=== PATIENT | female | born 1975 | race Caucasian/White ===

== ENCOUNTER 2018-05-11 12:10 | Inpatient (IN) ==
--- NOTE | 2018-05-11 09:04 | Discharge Summary ---
Orders not resulted at time of discharge: Pending orders 05/11/18 09:03 Hemoglobin and Hematocrit [HEME] Routine Date of Encounter: 05/11/18 - Discharge Diagnosis (1) Arthritis of left hip Priority: Primary Status: Chronic (2) Status post total hip replacement, left Priority: Primary Status: Acute (3) Asthma Priority: Secondary Status: Chronic Qualifiers: Asthma severity: unspecified severity Asthma persistence: unspecified Asthma complication type: unspecified Qualified Code(s): J45.909 - Unspecified asthma, uncomplicated - Hospital Course Hospital course: Ms. Cates is a 43 year old female - Time Spent with Patient Total time spent providing and/or coordinating discharge services: - Discharge Medications Allergies/Adverse Reactions: Allergy/AdvReac Type Severity Reaction Status Date / Time Penicillins Allergy Nausea Verified 05/11/18 13:26 Primary care physician: PCP NONE - Discharge Instructions Follow Up With: NONE,PCP [Primary Care Provider] -
--- NOTE | 2018-05-11 12:26 | History & Physical Report ---
Date of Encounter: 05/11/18 Time of Encounter: 12:26 24 Hour HP Update - Instructions Instructions: If the History and Physical is less than 30 days old and was completed prior to A.M. admission and or procedure and has NOT been updated on calendar day of procedure please complete this update prior to performing procedure. - Update Patient reports changes in Medical Condition: No Changes in examination, assessment, or condition: No Changes in Medication: No Preop tests/diagnostics Reviewed: Yes Surgery Remains Indicated: Yes Consent for Planned Operative Procedure(s) Verified: Yes - Pre-Operative Checklist Preoperative Checklist Indicated: No Prophylactic Antibiotic Ordered: Yes Is VTE Prophylaxis Indicated?: Yes
[2018-05-11] MEDS ORDERED: Albuterol 2.5 MG/3 ML NEBULIZER IH ONE (12:46)
[2018-05-11] MEDS ORDERED: Clindamycin 900 MG/50 ML 900 MG/50 ML IV.SOLN IVPB ONE (12:46)
[2018-05-11] MEDS ORDERED: *HR* PHENYLEPHRINE 1,000 MCG/10 ML SYRINGE IVP ONE ×2 (12:48→14:07)
[2018-05-11] MEDS ORDERED: Acetaminophen IV 1,000 MG/100 ML INFUS..BTL IVPB ONE (12:57)
[2018-05-11] MEDS ORDERED: Scopolamine Patch 1.5 MG PATCH.TD72 TD ONE (12:57)
[2018-05-11] MEDS ORDERED: Gabapentin 300 MG CAPSULE PO ONE (12:57)
[2018-05-11] MEDS ORDERED: Celecoxib 100 MG CAPSULE PO ONE (12:57)
[2018-05-11] MEDS ORDERED: Famotidine 20 MG/2 ML VIAL IVP ONE (12:57)
--- NOTE | 2018-05-11 12:58 | Anesthesia Evaluation PreOp ---
Date of Encounter: 05/11/18 Time of Encounter: 12:55 - Past History Planned Operation: Left total hip Cardiac History: Denies any Significant Hx Pulmonary History: Asthma (well controlled) ACADEMIC MANAGER History: Denies Any Significant HX Other Medical History: Other (PCOS, congenitl hip dysplasia) Anesthesia History: No Prior Anesthetic Complications, Past Anesthesia (gastric sleeve) : No Alcohol Use: none Drug use: none Medications and Allergies Naproxen [Naprosyn] 500 mg PO BID #20 tablet 03/21/16 [Rx] OxyCODONE/APAP 5/325 [Percocet 5/325 MG] 1 each PO Q4HR PRN #20 tablet 03/21/16 [Rx] Promethazine [Phenergan] 25 mg PO Q6HR PRN #14 tablet 03/21/16 [Rx] levoFLOXacin [Levaquin] 500 mg PO DAILY 7 Days #7 tablet 12/14/17 [Rx] Aspirin Enteric Coated [Aspirin EC] 325 mg PO BID #20 tablet. 05/11/18 [Rx] Ibuprofen [Motrin] 600 mg PO Q8HR #20 tab 05/11/18 [Rx] OxyCODONE Immed Rel [Roxicodone 5 MG] 5 mg PO Q6HR PRN 5 Days #20 tablet 05/11/18 [Rx] Allergy/AdvReac Type Severity Reaction Status Date / Time latex Allergy Rash Verified 03/21/16 10:59 Penicillins Allergy Swelling Verified 03/21/16 10:09 of Lip/Tongue/Throat - Meds/Allergy Pre-op Review Medications Reviewed: Yes Allergies Reviewed: Yes Beta Blockers on Current Med List: No Anesthesia Results - Labs Laboratory Tests 04/12/18 04/12/18 04/12/18 09:20 09:20 09:20 WBC 4.1 L Hgb 13.8 Hct 42.2 Plt Count 121 L PT 12.1 INR 1.1 APTT 28.9 Sodium 138 Potassium 3.9 Chloride 105 Carbon Dioxide 26 BUN 13 Creatinine 0.78 Est GFR (Non-Af Amer) > 60 Anesthesia Exam Vital Signs/O2 Sat/Glucose, Most Recent Temp Pulse Resp BP Pulse Ox 98.6 F 66 18 130/83 99 05/11/18 12:38 05/11/18 12:38 05/11/18 12:38 05/11/18 12:38 05/11/18 12:38 Weight: 72 kg NPO (# of Hours): > 8 hr - HEENT Pupil (Motor): Pupils equal Mallampati: II Teeth: Normal Oral Opening: Greater than 3 - ACADEMIC MANAGER LOC: Oriented ACADEMIC MANAGER Motor: Normal RUE, Normal LUE, Normal RLE, Normal LLE, Normal Face ACADEMIC MANAGER Sensory: Normal: RUE, LUE, RLE, LLE, Face - Cardiac Rhythm: Regular Murmur: None - Pulmonary Breath Sounds: bilateral Clear Respiratory Effort: Symmetrical Anesthesia Assess/Plan ASA Score: 2 Level of consciousness: Cooperative, Oriented Anesthetic Plan: MAC, Spinal Monitoring Plan: Standard Monitors Recovery Plan: PACU
[2018-05-11] MEDS ORDERED: Ringers Solution, Lactated 1,000 ML IVC SCH ×2 (13:00→15:50)
--- NOTE | 2018-05-11 13:03 | Physician Discharge Referral ---
Home Health/Hosp Referral Info Transfer to: Home Health Provider in Charge Post Discharge: PCP - Diagnosis (1) Status post total hip replacement, left Priority: Primary Status: Acute (2) Arthritis of left hip Priority: Primary Status: Chronic - Respiratory Orders None Smoking Cessation: Smoking cessation has been advised. For more information, call the [place] Tobacco Quit Line at 7-088-TZSC-NOW. - Diet/Nutrition Diet/Nutrition Orders: Regular - Activity Activity Orders: Up ad marlene, Ambulate, Walker - Services Needed Following services are medically necessary services: Nursing, Home Health Aide, Physical Therapy, Occupational Therapy Home Care Orders: Opsite dressing, leave intact until first post-operative visit. If dressing becomes >50% saturated, contact office, remove dressing and place appropriate dressing in its place. Do not allow for dressing to get wet. Zipline/[place] in place, plan to remove at post-operative day #14-16. Total Joint Precautions x 6 weeks Apply cold therapy wrap 3-6x/day for 20 minutes at a time. Encourage ambulation throughout the day Use Incentive spirometer 10x/hour. Elevate affected extremity above heart as tolerated. Brace: Wear hip abductor brace at night x 6 weeks. - Transfer Medications Prescriptions: OxyCODONE Immed Rel [Roxicodone 5 MG] 5 mg PO Q6HR PRN 5 Days #20 tablet PRN Reason: Pain Ibuprofen [Motrin] 600 mg PO Q8HR #20 tab Aspirin Enteric Coated [Aspirin EC] 325 mg PO BID #20 tablet. Home Medications: Naproxen [Naprosyn] 500 mg PO BID #20 tablet 03/21/16 [Rx] OxyCODONE/APAP 5/325 [Percocet 5/325 MG] 1 each PO Q4HR PRN #20 tablet 03/21/16 [Rx] Promethazine [Phenergan] 25 mg PO Q6HR PRN #14 tablet 03/21/16 [Rx] levoFLOXacin [Levaquin] 500 mg PO DAILY 7 Days #7 tablet 12/14/17 [Rx] Aspirin Enteric Coated [Aspirin EC] 325 mg PO BID #20 tablet. 05/11/18 [Rx] Ibuprofen [Motrin] 600 mg PO Q8HR #20 tab 05/11/18 [Rx] OxyCODONE Immed Rel [Roxicodone 5 MG] 5 mg PO Q6HR PRN 5 Days #20 tablet 05/11/18 [Rx] Allergies/Adverse Reactions: Allergy/AdvReac Type Severity Reaction Status Date / Time latex Allergy Rash Verified 03/21/16 10:59 Penicillins Allergy Swelling Verified 03/21/16 10:09 of Lip/Tongue/Throat Certification: Further, I certify that my clinical findings support that this patient is homebound (i.e. absences from home require considerable and taxing effort and are for medical reasons or hoahaoism services or infrequently or short duration when for other reasons) because: Homebound Reason: Post-surgery restriction and or conditions limit ability to leave home Attestation: My signature below is to certify that this patient is under my care and that I, or nurse practitioner, or a physician's pediatric physical therapy assistant working with me, has a [id number] encounter with this patient.
[2018-05-11] MEDS ORDERED: *HR* Morphine Sulfate/PF 10 MG/10 ML AMPUL ONE (13:10)
[2018-05-11] MEDS ORDERED: Dexamethasone 4 MG/ML VIAL ONE (13:10)
[2018-05-11] MEDS ORDERED: Ondansetron 4 MG/2 ML VIAL ONE (13:10)
[2018-05-11] MEDS ORDERED: Lidocaine -MPF 1% 5 ML AMPUL ONE (13:10)
[2018-05-11] MEDS ORDERED: Lidocaine -MPF 2% 2 ML VIAL ONE (13:10)
[2018-05-11] MEDS ORDERED: *HR* Succinylcholine 200 MG/10 ML VIAL IVP ONE (13:11)
[2018-05-11] MEDS ORDERED: Ethanol\\Acetic Acid\\Na Ace\\Ben 1,000 ML IRRIG.SOLN IR ONE (13:28)
[2018-05-11] MEDS ORDERED: *HR* Midazolam HCl 2 MG/2 ML VIAL ONE (13:29)
[2018-05-11] MEDS ORDERED: *HR* FentaNYL (PF) 100 MCG/2 ML VIAL ONE (13:29)
[2018-05-11] MEDS ORDERED: Propofol 500 MG/50 ML INFUS..BTL ONE (13:33)
[2018-05-11] MEDS ORDERED: EPHEDrine 50 MG/ML VIAL ONE (14:26)
[2018-05-11] MEDS ORDERED: *HR* Propofol 200 MG/20 ML VIAL IVP ONE (14:36)
--- NOTE | 2018-05-11 15:01 | Orthopedic Operative Note ---
Date of procedure: 05/11/18 Pre-op diagnosis: Osteoarthritis left hip Post-op diagnosis: same Procedure: Procedure: Left Total Hip Replacment robotic-assisted Estimated blood loss: 200 cc Hardware: Metal and polyethylene replacement. [place] DM Cup: 52 cup Femoral 8 size stem Head: +8 head with Rose Procedural Notes: Grade 4 arthritic changes femoral head acetabular socket, procedure performed with robotic assistance. 16 mm shorter operative versus nonoperative as measured by preoperative CT scan Operative procedure: The patient was brought to the operating room and placed on the operating room table. After general anesthesia was administered the patient was placed in the lateral decubitus position with the operative leg up. All pressure points were padded appropriately and the head was stabilized in the neutral position. The operative extremity was prepped and draped in the sterile surgical fashion patient received IV antibiotic prior to skin incision. 3 Steinmann pins were placed in the iliac crest 3 cm proximal to the anterior superior iliac spine this was for the robotic-assisted sensor. This was done through a small 2 cm incision. A standard posterior approach is made to the operative hip, the incision was made through the skin and subcutaneous tissue hemostasis was obtained with Bovie cautery. Using careful sharp dissection the fascia was identified and incised exposing the external rotators. The greater trochanter was marked, and length was measured at this time utilizing robotic assistance. The external rotators were released off the greater trochanter and tagged with #2 FiberWire suture. The capsule was T'd open and the hip was brought into internal rotation. Patient noted to have grade 4 arthritic changes femoral head. The femoral neck cut was made at the appropriate level roughly 15 mm proximal to the lesser trochanter aced on preoperative templating. An anterior capsulotomy was performed for the anterior retractor. Soft tissues removed from the acetabulum. Patient noted to have grade 4 arthritic changes acetabulum. The acetabulum reference point was confirmed. The acetabulum was then mapped with robotic assistance. Based on the preoperative plan the acetabulum was reamed in one step with a 51 reamer. The 52 acetabulum was impacted with robotic assistance and 40 degrees of abduction and 20 degrees of anteversion. The hip was brought back in to internal rotation and prepared with the box covering machine operator followed by the canal finder followed by the reaming process to a size 8/9 broaching process in 20 degrees anteversion. It was broached up to the appropriate size 8 Trial reduction revealed leg lengths close to normal. The femoral implant was impacted in place in 20 degrees of anteversion. Trial reduction found the hip to be stable with 8 head and Rose. The trials were removed and the real implants were impacted in place. The hip was reduced, patient had robotic confirmed leg length of 5 mm shorter than the contralateral side. The hip had excellent stability with forward flexion to 90 degrees adduction of 30 degrees and internal rotation of 60 degrees. The hip had no shuck. The hip sat with an antibacterial solution. It was irrigated out with 2 L of pulse irrigation. The Steinmann pins were removed. The hip was closed by the PA. The deep tissue was irrigated and closed deep with #1 PDS suture superficially with 0 PDS suture and skin was closed with Dermabond and zip tie. The patient was placed in a sterile dressing and abduction pillow. The patient was extubated and transferred to the recovery room in stable condition. Anesthesia: spinal Surgeon: Fito Harman Was there an assistant golf course superintendent present: No Estimated blood loss (cc): 200 Condition: stable Disposition: PACU
[2018-05-11 15:42] LABS: Basophils % 0.3 %; Eosinophils % 0.7 %; Hematocrit 34.8 % (35.3-44.9); Hemoglobin 11.5 g/dL (11.5-15.4); Immature Granulocytes % 0.3 % (0-4); Lymphocytes # 0.8 K/mcL (0.6-4.6); Lymphocytes % 13.3 %; Mean Corpuscular Hemoglobin 29.6 pg (28.0-33.3); Mean Corpuscular Volume 89.5 fL (83.0-100.0); Mean Platelet Volume 10.7 fL (9.4-12.4); Monocytes # 0.3 K/mcL (0.0-1.3); Monocytes % 4.3 %; Neutrophils # 4.7 K/mcL (1.6-8.9); Platelet Count 123 K/mcL (140-400); Red Blood Count 3.89 M/mcL (3.82-4.97); Red Cell Distribution Width 12.4 % (11.5-14.5); Segmented Neutrophils % 81.1 %
[2018-05-11] MEDS ORDERED: MOM Conc 10 ML UD.LIQ PO PRN (15:50)
[2018-05-11] MEDS ORDERED: Naloxone 0.4 MG/ML INJ IVP PRN (15:50)
[2018-05-11] MEDS ORDERED: Temazepam 15 MG CAPSULE PO PRN (15:50)
[2018-05-11] MEDS ORDERED: *HR* OxyCODONE/APAP 5/325 TABLET PO PRN (15:50)
[2018-05-11] MEDS ORDERED: Sennosides 8.6 MG TABLET PO PRN (15:50)
[2018-05-11] MEDS ORDERED: *HR* OxyCODONE Immed Rel 5 MG TABLET PO PRN (15:50)
[2018-05-11] MEDS: Ondansetron 4 MG/2 ML VIAL IVP PRN ×2 (16:23→23:58)
--- NOTE | 2018-05-11 17:56 | Anesthesia Evaluation Post Op ---
Date of Encounter: 05/11/18 Time of Encounter: 15:30 - Vital Signs Vital Signs: Selected Entries 05/11/18 16:20 Temperature 98.4 F Pulse Rate 81 Respiratory Rate 16 Blood Pressure 126/85 O2 Sat by Pulse Oximetry 97 - Lungs Lungs: Clear Ascult./Percussion - Airway Airway: Non-obstructed - Cardiovascular Regular Rate - Mental Status Mental Status: Alert & Oriented, Answers Appropriately - Nausea Vomiting Nausea Vomiting: Not Present - Hydration Hydration: NPO - Discharge PostOp Status: Transfer Patient to floor
[2018-05-11] MEDS ORDERED: *HR* Enoxaparin 30 MG/0.3 ML SYRINGE SQ SCH (18:00)
[2018-05-11] MEDS: Ascorbic Acid 500 MG TABLET PO SCH (18:04)
[2018-05-11] MEDS: *HR* Enoxaparin 30 MG/0.3 ML SYRINGE SQ SCH (18:05)
[2018-05-11] MEDS: Clindamycin 900 MG/50 ML 900 MG/50 ML IV.SOLN IVPB SCH (21:36)
[2018-05-12] MEDS ORDERED: Ketorolac 15 MG/ML VIAL IVP PRN (05:51)
[2018-05-12] MEDS ORDERED: Acetaminophen IV 1,000 MG/100 ML INFUS..BTL IVPB PRN (05:59)
[2018-05-12] MEDS: Clindamycin 900 MG/50 ML 900 MG/50 ML IV.SOLN IVPB SCH (06:11)
[2018-05-12] MEDS: *HR* Enoxaparin 30 MG/0.3 ML SYRINGE SQ SCH ×2 (06:11→17:25)
[2018-05-12] MEDS: Ketorolac 30 MG/ML VIAL IVP PRN ×2 (06:12→13:32)
[2018-05-12 06:35] LABS: Hematocrit 35.2 % (35.3-44.9); Hemoglobin 11.8 g/dL (11.5-15.4)
[2018-05-12 06:36] LABS: BUN/Creatinine Ratio 14 (6-26); Blood Urea Nitrogen 11 mg/dL (6-20); Calcium 9.2 mg/dL (8.6-10.3); Carbon Dioxide 23 mEq/L (23-29); Chloride 102 mEq/L (98-107); Glucose 146 mg/dL (70-105); Osmolality,Calculated 284 (280-300); Potassium 4.4 mEq/L (3.5-5.1); Sodium 136 mEq/L (136-145); eGFR For Non-African Americans > 60 (> 60)
[2018-05-12] MEDS: Ondansetron 4 MG/2 ML VIAL IVP PRN (09:15)
[2018-05-12] MEDS: Ascorbic Acid 500 MG TABLET PO SCH ×2 (09:23→16:39)
[2018-05-12] MEDS: Multivit/Ca/Min/Fe/FA 1 TAB TABLET PO SCH (09:23)
--- NOTE | 2018-05-12 12:05 | Orthopedics Progress Note ---
Date of Encounter: 05/12/18 Time of Encounter: 12:03 Subjective Interval history: S: Patient is seen today and has no complaints. Was not out of bed yesterday due to drowsiness. Feeling better this morning and requesting Tums. O: Afebrile and vital signs are stable Operative extremity dressing is clean, dry, and intact. Neurovascularly intact distally A: Post left hip arthroplasty P: Doing well Will provide Tums Resume postoperative care Discharge planning Objective Vital signs: Vital Signs Temp Pulse Resp BP Pulse Ox 05/12/18 11:12 98.0 F 65 17 91/58 95 05/12/18 06:43 98.3 F 65 15 93/57 96 05/12/18 03:54 98.4 F 75 16 94/60 93 05/11/18 23:47 97.5 F L 69 16 103/65 100 05/11/18 19:56 96.8 F L 67 14 101/68 99 05/11/18 18:50 98.5 F 70 16 124/84 98 05/11/18 17:50 98.4 F 82 16 126/77 96 05/11/18 16:50 98.3 F 69 16 137/90 90 05/11/18 16:20 98.4 F 81 16 126/85 97 05/11/18 15:50 98.4 F 71 15 116/69 98 05/11/18 15:36 97.7 F 65 12 123/79 99 05/11/18 15:26 80 12 113/72 97 05/11/18 15:16 76 15 108/73 100 05/11/18 15:06 98.1 F 79 16 113/61 98 05/11/18 12:38 98.6 F 66 18 130/83 99 Intake and Output 05/11/18 05/12/18 05/12/18 23:59 07:59 15:59 Intake Total 250 / 250 100 / 100 Output Total 200 / 200 700 / 700 Balance 50 / 50 -700 / -700 100 / 100 Intake: IV Fluids 50 / 50 100 / 100 Ofirmev 1,000 mg/100 ml 1,000 100 / 100 mg In 100 ml @ 400 mls/hr IVPB Q6HR PRN Rx#:[id number] Cleocin Premix 900 MG/50 ML 900 50 / 50 mg In 50 ml @ 50 mls/hr IVPB Q8H [facility] Rx#:[id number] Oral 200 / 200 Output: Urine 700 / 700 Emesis 200 / 200 Other: Weight 81.3 kg Patient Weight 05/12/18 23:59 Weight 81.3 kg - Labs CBC & BMP: 05/12/18 05:35 05/12/18 05:35 Labs: Abnormal lab results Hct 35.2 % (35.3-44.9) L 05/12/18 05:35 Plt Count 123 K/mcL (140-400) L 05/11/18 15:27 Glucose 146 mg/dL (70-105) H 05/12/18 05:35 Consult Discharge Plan - Plan Referrals: NONE,PCP [Primary Care Provider] -
[2018-05-12] MEDS: traMADol 50 MG TABLET PO PRN (16:42)
[2018-05-13 03:16] LABS: Hematocrit 27.4 % (35.3-44.9)
[2018-05-13 03:22] LABS: Hemoglobin 9.2 g/dL (11.5-15.4)
[2018-05-13 03:36] LABS: BUN/Creatinine Ratio 16 (6-26); Blood Urea Nitrogen 14 mg/dL (6-20); Calcium 8.8 mg/dL (8.6-10.3); Carbon Dioxide 26 mEq/L (23-29); Chloride 105 mEq/L (98-107); Glucose 109 mg/dL (70-105); Osmolality,Calculated 285 (280-300); Potassium 4.3 mEq/L (3.5-5.1); Sodium 137 mEq/L (136-145); eGFR For Non-African Americans > 60 (> 60)
[2018-05-13] MEDS: Ondansetron 4 MG/2 ML VIAL IVP PRN (04:02)
[2018-05-13] MEDS: Ketorolac 30 MG/ML VIAL IVP PRN (04:05)
[2018-05-13] MEDS: *HR* Enoxaparin 30 MG/0.3 ML SYRINGE SQ SCH (06:19)
[2018-05-13 07:54] VITALS: BP 98/59
[2018-05-13] MEDS: Multivit/Ca/Min/Fe/FA 1 TAB TABLET PO SCH (09:12)
[2018-05-13] MEDS: Ascorbic Acid 500 MG TABLET PO SCH (09:12)
[2018-05-13] MEDS: traMADol 50 MG TABLET PO PRN (09:15)
--- NOTE | 2018-05-13 09:15 | Orthopedics Progress Note ---
Date of Encounter: 05/13/18 Time of Encounter: 09:14 Subjective Interval history: S: Patient is seen today and has no complaints. O: Afebrile and vital signs are stable Operative extremity dressing is clean, dry, and intact. Neurovascularly intact distally A: Post left hip arthroplasty P: Doing well Resume postoperative care Discharge planning Objective Vital signs: Vital Signs Temp Pulse Resp BP Pulse Ox 05/13/18 07:54 98.7 F 73 16 98/59 97 05/13/18 03:51 98.7 F 62 16 99/62 99 05/13/18 01:15 98.6 F 64 14 94/62 98 05/12/18 18:59 98.8 F 69 16 103/68 98 05/12/18 15:21 98.9 F 70 14 103/65 97 05/12/18 11:12 98.0 F 65 17 91/58 95 Intake and Output 05/12/18 05/13/18 05/13/18 23:59 07:59 15:59 Intake Total 200 / 200 0 / 0 Output Total 0 / 0 0 / 0 Balance 200 / 200 0 / 0 Intake: IV Fluids 200 / 200 Lactated Ringers 1,000 ML @ 75 200 / 200 mls/hr IVC .[id number] [facility] Rx#: [id number] Oral 0 / 0 0 / 0 Output: Urine 0 / 0 0 / 0 Other: # Voids 1 Weight 81.26 kg Patient Weight 05/13/18 23:59 Weight 81.26 kg - Labs CBC & BMP: 05/13/18 03:05 05/13/18 03:05 Labs: Abnormal lab results Hgb 9.2 g/dL (11.5-15.4) L D 05/13/18 03:05 Hct 27.4 % (35.3-44.9) L 05/13/18 03:05 Plt Count 123 K/mcL (140-400) L 05/11/18 15:27 Glucose 109 mg/dL (70-105) H 05/13/18 03:05 Consult Discharge Plan - Plan Referrals: NONE,PCP [Primary Care Provider] -
== END 2018-05-13 11:19 | disposition home or self-care (01) | DRG 470 ==
LOC: SAMDAY 12:10 → 3NENU 15:41
PROVIDERS: ADMIT Orthopaedic Surgery; ATTEND Orthopaedic Surgery